=== PATIENT | female | born 1960 | race Caucasian/White ===

== ENCOUNTER 2022-11-30 22:15 | Outpatient (REF) | payer OTHER, SELFPAY ==
[2022-11-30 22:59] LABS: Appearance Urine Slightly Cloudy (Clear); Bilirubin Urine Negative (Negative); Blood Urine Trace-intact (Negative); Color Urine Dark yellow (Yellow); Glucose Urine Negative (Negative); Ketones Urine Trace (Negative); Leukocyte Esterase Urine 3+ (Negative); Nitrite Urine Negative (Negative); Protein Urine Negative (Negative); Urobilinogen Urine 0.2 (0.2-1.0)
[2022-11-30 23:00] LABS: Albumin* 4.3 g/dL (3.3-5.0); Chloride* 102 mmol/L (96-114)
[2022-11-30 23:01] LABS: Basophils Absolute Auto 0.03 K/uL (0.00-0.30); Basophils Percent Auto 0.4 % (0.0-3.0); Eosinophils Percent Auto 2.6 % (0.0-7.0); Hemoglobin* 14.3 gm/dL (12.0-16.0); Immature Granulocytes Abs Auto 0.06 K/uL (0.00-0.30); Immature Granulocytes Pct Auto 0.8 %; Lymphocytes Absolute Auto 1.59 K/uL (0.90-2.90); Lymphocytes Percent Auto 20.6 % (20-44); Mean Corpuscular HGB Conc 33 gm/dL (32-36); Mean Corpuscular Hemoglobin 32 pg (26-34); Mean Corpuscular Volume 97 fL (80-100); Monocytes Percent Auto 9.1 % (0.0-11.0); Neutrophils Absolute Auto 5.12 K/uL (1.7-7.0); Neutrophils Percent Auto 66.5 % (42.0-72.0); Platelet Count* 328 K/uL (140-440); Potassium* 4.7 mmol/L (3.6-5.1); RDW Coefficient of Variation % 13.4 % (11.5-15.5); Red Blood Count 4.42 m/uL (4.00-5.20); Sodium* 139 mmol/L (135-149)
[2022-11-30 23:03] LABS: Creatinine* 0.8 mg/dL (0.5-1.5); Estimated Glomerular Filt Rate 83 ml/min
[2022-11-30 23:04] LABS: Alanine Aminotransferase* 22 U/L (4-35); Alkaline Phosphatase* 87 U/L (40-150); Anion Gap 9 mEq/L (7-15); Aspartate Amino Transferase* 28 U/L (12-35); Bilirubin Total* 0.7 mg/dL (0.1-1.5); Blood Urea Nitrogen* 20 mg/dL (7-30); Calcium* 10.1 mg/dL (8.4-10.6); Carbon Dioxide* 28 mmol/L (20-32); Glucose* 76 mg/dL (60-115); Iron* 222 ug/dL (37-170); Slide Review Reflex No; Total Protein* 7.7 g/dL (6.0-8.3)
[2022-11-30 23:06] LABS: C Reactive Protein* 0.5 mg/dL (0.5-1.0)
[2022-11-30 23:13] LABS: Bacteria Urine Many; RBC Urine 0-2 (0-2); Squamous Epithelial Cell Urine Few (None-Few); WBC Urine 50-100 (0-5)
[2022-11-30 23:14] LABS: Calcium Oxalate Crystals Urine Few
[2022-11-30 23:58] LABS: Erythrocyte SedimentationRate* 9 mm/hr (2-20)
== END 2022-11-30 22:16 | disposition home or self-care (01) ==
LOC: NPINS 22:15
DX: Z79.899 Other long term (current) drug therapy (principal)
CPT/HCPCS: 80053; 81001; 83540; 85025; 85651; 86140; 87086; 87186

== ENCOUNTER 2023-08-05 13:50 | Outpatient (REF) | payer OTHER, SELFPAY ==
--- OUTSIDE RECORDS SUMMARY | 2023-08-05 13:58 | XMS_ITS | Referral Summary ---
Author Name Unknown Organization [facility] Address [address] [place] [id number] Care Team Providers Care Deposit Refund Clerk Name Role Phone Kodak Sheikh MD Primary Care Provider [phone] Allergies Active Allergy Reactions Criticality Noted Date Comments Amoxicillin Shortness Of Breath High 10/29/2022 Rash Penicillins Hives Low 04/23/2022 Rash, hives and itching, affected breathing 25 years with amoxicillin tolerates Keflex Medications Medication Sig Dispensed Refills Start Date End Date Status allopurinol (ZYLOPRIM) 300 MG tablet Take 300 mg by mouth daily Active DULoxetine (CYMBALTA) 60 MG capsule Take 60 mg by mouth 2 times daily Active fluticasone-salmete rol (ADVAIR) 100-50 MCG/ACT inhaler Inhale 1 puff into the lungs every 12 hours Active adalimumab (HUMIRA) 40 MG/0.8ML prefilled syringe kit Inject 40 mg Subcutaneous every 14 days Active levothyroxine (SYNTHROID/LEVOTHRO ID) 200 MCG tablet Take 200 mcg by mouth daily Active methotrexate 2.5 MG tablet Take 15 mg by mouth once a week 6 tablets on Sundays Active spironolactone (ALDACTONE) 25 MG tablet Take 25 mg by mouth daily Active lisdexamfetamine (VYVANSE) 40 MG capsule Take 40 mg by mouth every morning Active celecoxib (CELEBREX) 200 MG capsule Take 200 mg by mouth 2 times daily Active montelukast (SINGULAIR) 10 MG tablet Take 10 mg by mouth At Bedtime Active predniSONE (DELTASONE) 5 MG tablet Take 5 mg by mouth daily Active Vitamin D3 (CHOLECALCIFEROL) 25 mcg (1000 units) tablet Take 1 tablet by mouth daily Active vitamin B complex with vitamin C (VITAMIN B COMPLEX) tablet Take 1 tablet by mouth daily Active folic acid (FOLVITE) 1 MG tablet Take 1 mg by mouth daily Active acetaminophen (TYLENOL) 325 MG tabletIndications:S /P revision of total knee, right Take 2 tablets (650 mg) by mouth every 4 hours as needed for other (mild pain) 100 tablet 05/04/2022 Active polyethylene glycol (MIRALAX) 17 g packetIndications:S /P revision of total knee, right Take 17 g by mouth daily 7 packet 05/04/2022 Active HYDROcodone-acetami nophen (NORCO) 10-325 MG per tablet Take 1 tablet by mouth 2 times daily Active ibuprofen (ADVIL/MOTRIN) 800 MG tabletIndications:S /P gynecological surgery, follow-up exam Take 1 tablet (800 mg) by mouth every 6 hours as needed for other (mild and/or inflammatory pain) 30 tablet 10/29/2022 Active oxyCODONE (ROXICODONE) 5 MG tabletIndications:S /P gynecological surgery, follow-up exam Take 1-2 tablets (5-10 mg) by mouth every 4 hours as needed for moderate to severe pain 6 tablet 10/29/2022 Active ondansetron (ZOFRAN ODT) 4 MG ODT tabIndications:S/P gynecological surgery, follow-up exam Take 1 tablet (4 mg) by mouth every 8 hours as needed for nausea 4 tablet 10/29/2022 Active senna-docusate (SENOKOT-S/PERICOLA CE) 8.6-50 MG tabletIndications:S /P gynecological surgery, follow-up exam Take 1-2 tablets by mouth 2 times daily 30 tablet 10/29/2022 Active Active Problems Problem Noted Date Diagnosed Date S/P revision of total knee, 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 Social History Tobacco Use Types Packs/Day Years Used Date Smoking Tobacco: Former Cigarettes Smokeless Tobacco: Never Tobacco Cessation:Counseling Given: Not Answered Alcohol Use Standard Drinks/Week Comments Not Currently 0 (1 standard drink = 0.6 oz pur e alcohol) Adolescent Education Answer Date Record ed Getting School Help Needed Not on file 12/12 Sex and Gender Information Value Date Recorded Sex Assigned at Not on file Gender Identity Not on file Sexual Orientation Not on file Last Filed Vital Signs Vital Sign Reading Time Taken Comments Blood Pressure 130/59 10/29/2022 6:30 PM CDT Pulse 65 10/29/2022 6:30 PM CDT Temperature 36.7 ??C (98 ??F) 10/29/2022 4:30 PM CDT Respiratory Rate 23 10/29/2022 4:30 PM CDT Oxygen Saturation 94% 10/29/2022 6:30 PM CDT Inhaled Oxygen Concentration - - Weight 135.4 kg (298 lb 8 oz) 10/29/2022 11:57 A M CDT Height 170.2 cm (5' 7) 10/29/2022 12:34 PM CDT Body Mass Index 46.75 10/29/2022 11:57 AM CDT Plan of Treatment Not on file Medical Devices Implanted Type Area Air Traffic Control Specialist Device Identifier Shelf Expiration Date Model / Serial / Lot Bone Cement Simplex W/Tobramycin 6197-9-001 - [id number] Implanted:Qty : 2 on 05/04/2022 by Jewel Rivera MD at [facility] Cement, Bone Right: Knee [employer] 10/20/2023 6197-9-0 01 / / [id number] Bone Cement Simplex W/Tobramycin 6197-9-001 - [id number] Implanted:Qty : 1 on 05/04/2022 by Jewel Rivera MD at [facility] Cement, Bone Right: Knee [employer] 08/20/2023 6197-9-0 01 / / [id number] [place] Nabsb Saffron Fx Strl Lf Reuse - Sna Implanted:Qty : 1 on 10/29/2022 by Bert Nava MD at [facility] Metallic Hardware/An chor N/A: Vagina COLOPLAST [id number] 05/07/2025 [id number] / NA / [id number] [place] Nabsb Saffron Strl Lf Disp - Sna Implanted:Qty : 5 on 10/29/2022 by Bert Nava MD at [facility] Metallic Hardware/An chor N/A: Vagina COLOPLAST 10/29/2024 [id number] / NA / [id number] Imp Comp Strk Triathln Post Oct 10mm Sz 5 5544-A-500 - [id number] Implanted:Qty : 1 on 05/04/2022 by Jewel Rivera MD at [facility] Total Joint Component/I nsert Right: Knee [employer] [id number] 12/07/2026 5544-A-5 00 / / [id number] Imp Stem Femoral Strk Ts Kimo [id number] 5560-S-112 - [id number] Implanted:Qty : 1 on 05/04/2022 by Jewel Rivera MD at [facility] Total Joint Component/I nsert Right: Knee [employer] [id number] 12/22/2026 5560-S-1 12 / / [id number] Imp Baseplate Tibial Strk Tri Sz 6 5521-B-600 - [id number] Implanted:Qty : 1 on 05/04/2022 by Jewel Rivera MD at [facility] Total Joint Component/I nsert Right: Knee [employer] [id number] 12/28/2026 5521-B-6 00 / / [id number] Augment Tibial Sz B Tritanium Right Medial Left Lateral Co - [id number] Implanted:Qty : 1 on 05/04/2022 by Jewel Rivera MD at [facility] Total Joint Component/I nsert Right: Knee [employer] [id number] 11/30/2026 5549-A-2 22 / / [id number] Styker Triatholon X3 Totalstabiliz er+ Tibial Insert #6, 22 Mm Implanted:Qty : 1 on 05/04/2022 by Jewel Rivera MD at [facility] Total Joint Component/I nsert Right: Knee [employer] [id number] 10/14/2026 5537-G-6 22-E / / [id number] Imp Stem Femoral Strk Ts Kimo 31m68vm 5560-S-115 - [id number] Implanted:Qty : 1 on 05/04/2022 by Jewel Rivera MD at [facility] Total Joint Component/I nsert Right: Knee [employer] [id number] 12/17/2026 5560-S-1 15 / / [id number] Imp Comp Fem Strk Triathln Ts Sz 5 Rt 5512-F-502 - [id number] Implanted:Qty : 1 on 05/04/2022 by Jewel Rivera MD at [facility] Total Joint Component/I nsert Right: Knee [employer] [id number] 01/21/2027 5512-F-5 02 / / [id number] Imp Comp Strk Triathln Post Aug 5mm Sz 5 5543-A-500 - [id number] Implanted:Qty : 1 on 05/04/2022 by Jewel Rivera MD at [facility] Total Joint Component/I nsert Right: Knee [employer] [id number] 11/19/2026 5543-A-5 00 / / [id number] Imp Comp Fem Strk Triathln Dist Aug 5mm Rt 5 5540-A-502 - [id number] Implanted:Qty : 1 on 05/04/2022 by Jewel Rivera MD at [facility] Total Joint Component/I nsert Right: Knee [employer] [id number] 07/17/2026 5540-A-5 02 / / [id number] Explanted Type Area Air Traffic Control Specialist Device Identifier Shelf Expiration Date Model / Serial / Lot Tiffanie Femoral Knee Component Explanted:Qty: 1 on 05/04/2022 by Jewel Rivera MD at [facility] Right: Knee Tiffanie Tibial Knee Component Explanted:Qty: 1 on 05/04/2022 by Jewel Rivera MD at [facility] Right: Knee Tiffanie Poly Insert Knee Component Explanted:Qty: 1 on 05/04/2022 by Jewel Rivera MD at [facility] Right: Knee Procedures Procedure Name Priority Date/Time Associated Diagnosis Comments GLUCOSE (EXTERNAL RESULT) Routine 10/20/2022 2:20 PM CDT MA SCREENING BILATERAL Routine 03/29/2020 3:55 PM WRAPPING CHECKER from Last 3 Months or Most Recently Relevant to Health Maintenance Results * Glucose (External Result) (10/20/2022 2:20 PM CDT) Glucose (External) 82 60 - 115 mg/dL [facility] Blood 10/20/2022 2:20 PM CDT Narrative [facility] - 10/20/2022 2:20 PM CDT [facility] Lab Result Provider Outside LAB - HIM EXTERNAL R ESULT [facility] [address] [place] [id number], [facility] [phone] from Last 3 Months or Most Recently Relevant to Health Maintenance Advance Directives For more information, please contact: [phone] * Full Code (Latest Code Status on File) Date Activated Date Inactivated Comments 05/04/2022 3:51 PM 05/07/2022 7:18 PM All basic an d advanced life-sustaining interventions are performed as appropriate Question Answer Comments Code status determined by: Unable to dis cuss and no AD/POLST on file; continue PREVIOUSLY ORDERED code status Care Teams Deposit Refund Clerk Relationship Specialty Start Date End Date Kodak Sheikh MD PCP - General Family Medicine 04/28/22
--- OUTSIDE RECORDS SUMMARY | 2023-08-05 13:58 | XMS_ITS | Clinical Summary ---
Author Name Unknown Organization [facility] Address [place], [place] [address] Care Team Providers Care Equity Sales Assistant Name Role Phone Staff, Other Clinical Primary Care Provider Unav ailable Allergies Active Allergy Reactions Criticality Noted Date Comments Penicillins Hives,Rash Medium 11/08/2019 Medications Medication Sig Dispensed Refills Start Date End Date Status adalimumab 40 mg/0.4 mL pnkt Inject 40 mg subcutaneous every 2 weeks. 05/06/2021 Active albuterol HFA (PRO-AIR; VENTOLIN; PROVENTIL) 90 mcg/actuation inhaler albuterol sulfate HFA 90 mcg/actuation aerosol inhaler INL 2 PFS PO Q 4 H PRN Active allopurinoL (ZYLOPRIM) 300 mg tablet allopurinol 300 mg tablet Active celecoxib (CELEBREX) 200 mg capsule celecoxib 200 mg capsule Active DULoxetine (CYMBALTA) 60 mg Delayed-release capsule duloxetine 60 mg capsule,delayed release TK ONE C PO BID Active levothyroxine (SYNTHROID) 200 mcg tablet levothyroxine 200 mcg tablet Active methotrexate (RHEUMATREX) 2.5 mg tablet TAKE 6 TABLETS BY MOUTH 1 TIME A WEEK 12/31/2021 Active predniSONE (DELTASONE) 5 mg tablet Take 5 mg by mouth once daily. 12/31/2021 Active Social History Tobacco Use Types Packs/Day Years Used Date Smoking Tobacco: Never Smokeless Tobacco: Never Tobacco Cessation:Counseling Given: No Sex and Gender Information Value Date Recorded Sex Assigned at Not on file Gender Identity Not on file Sexual Orientation Not on file Obstetrics History Last Filed Vital Signs Vital Sign Reading Time Taken Comments Blood Pressure 138/75 01/16/2022 10:26 AM CDT Pulse 78 01/16/2022 10:26 AM CDT Temperature 36.1 ??C (96.9 ??F) 01/16/2022 10:26 AM C DT Respiratory Rate 16 01/16/2022 10:26 AM CDT Oxygen Saturation 99% 01/16/2022 10:26 AM CDT Inhaled Oxygen Concentration - - Weight 136.1 kg (300 lb) 01/16/2022 10:26 AM CDT Height 170.2 cm (5' 7) 01/16/2022 10:26 AM CDT Body Mass Index 46.99 01/16/2022 10:26 AM CDT Plan of Treatment Not on file Care Teams Equity Sales Assistant Relationship Specialty Start Date End Date Staff, Other Clinical . PCP - General 01/16/22
--- OUTSIDE RECORDS SUMMARY | 2023-08-05 13:58 | XMS_ITS | Clinical Summary ---
Author Name Unknown Organization [facility] Address [address] [place] [address] Care Team Providers Care Veterinary Medical Officer Name Role Phone Kodak Sheikh MD Primary Care Provider [phone] Allergies Active Allergy Reactions Criticality Noted Date [...] 10/29/2022 11:57 AM CDT Plan of Treatment Health Maintenance Due Date Last Done Comments ADVANCE CARE PLANNING 1958 ANNUAL REVIEW OF HM ORDERS 1958 CT COLONOGRAPHY 1958 FIT 1958 FLEX SIG 1958 TSH W/FREE T4 REFLEX 1958 sDNA (Cologuard) 1958 HIV SCREENING 1973 HEPATITIS C SCREENING 1976 MEDICARE ANNUAL WELLNESS VISIT 1976 PAP 12/06/1979 LIPID 1998 LUNG CANCER SCREENING 2008 ZOSTER IMMUNIZATION (1 of 2) 11/24/2011 09/29/2011 Pneumococcal Vaccine: Pediatrics (0 to 5 Years) and At-Risk Patients (6 to 64 Years) (3 of 3 - PPSV23 or PCV20) 01/31/2016 01/30/2011, 01/30/2011, 01/30/2011, Additional history exists RSV VACCINE ( & 60+) (1 - 1-dose 60+ series) 2018 COLONOSCOPY 2019 12/04/2009 COLORECTAL CANCER SCREENING 2019 COVID-19 Vaccine (3 - Moderna risk series) 09/24/2020 08/27/2020, 07/19/2020 MAMMO SCREENING 03/29/2022 03/29/2020 PHQ-2 (once per calendar year) 2023 INFLUENZA VACCINE (Season Ended) 2023 2020, 12/07/2019, 12/03/2018, Additional history exists GLUCOSE 10/20/2025 10/20/2022, 04/22, 05/05/2022, Additional history exists DTAP/TDAP/TD IMMUNIZATION (3 - Td or Tdap) 2030 2020, 06/28/2009 HPV IMMUNIZATION Aged Out No longer e ligible based on patient's age to complete this topic IPV IMMUNIZATION Aged Out No longer e ligible based on patient's age to complete this topic MENINGITIS IMMUNIZATION Aged Out No l onger eligible based on patient's age to complete this topic RSV MONOCLONAL ANTIBODY Aged Out No l onger eligible based on patient's age to complete this topic Medical Devices Implanted Type Area Chucking Machine Set Up Operator Tool Device Identifier Shelf Expiration Date Model / Serial / Lot Bone Cement Simplex W/Tobramycin 6197-9-001 - [id number] Implanted:Qty : 2 on 05/04/2022 by Jewel Rivera MD at [facility] Cement, Bone Right: Knee [employer] 10/20/2023 6197-9-0 / / [id number] Bone Cement Simplex W/Tobramycin 6197-9-001 - [id number] Implanted:Qty : 1 on 05/04/2022 by Jewel Rivera MD at [facility] Cement, Bone Right: Knee [employer] 08/20/2023 6197-9-0 01 / / [id number] [place] Nabsb Saffron Fx Strl Lf Reuse - Sna Implanted:Qty : 1 on 10/29/2022 by Bert Nava MD at [facility] Metallic Hardware/An chor N/A: Vagina COLOPLAST [id number] 05/07/2025 [id number] / NA / [id number] [place] Nabsb Saffron Strl Lf Disp - Sna Implanted:Qty : 5 on 10/29/2022 by Bert Nava MD at [facility] Metallic Hardware/An chor N/A: Vagina COLOPLAST 10/29/2024 [id number] / NA / [id number] Imp Comp Strk Triathln Post Aug 10mm Sz 5 5544-A-500 - [id number] Implanted:Qty : 1 on 05/04/2022 by Jewel Rivera MD at [facility] Total Joint Component/I nsert Right: Knee [employer] [id number] 12/07/2026 5544-A-5 00 / / [id number] Imp Stem Femoral Strk Ts Kimo [id number] 5560-S-112 - [id number] Implanted:Qty : 1 on 05/04/2022 by Jewel Rivera MD at [facility] Total Joint Component/I nsert Right: Knee [employer] [id number] 12/22/2026 5560-S-1 12 / / [id number] Imp Baseplate Tibial Strk Tri Sz 6 5521-B-600 - [id number] Implanted:Qty : 1 on 05/04/2022 by Jewel Rivera MD at [facility] Total Joint Component/I nsert Right: Knee [employer] [id number] 12/28/2026 5521-B-6 00 / / [id number] Augment Tibial Sz B Tritanium Right Medial Left Lateral Co - [id number] Implanted:Qty : 1 on 05/04/2022 by Jewel Rivera MD at [facility] Total Joint Component/I nsert Right: Knee [employer] [id number] 11/30/2026 5549-A-2 22 / / [id number] Styker Triatholon X3 Totalstabiliz er+ Tibial Insert #6, 22 Mm Implanted:Qty : 1 on 05/04/2022 by Jewel Rivera MD at [facility] Total Joint Component/I nsert Right: Knee [employer] [id number] 10/14/2026 5537-G-6 22-E / / [id number] Imp Stem Femoral Strk Ts Kimo [id number] 5560-S-115 - [id number] Implanted:Qty : 1 on 05/04/2022 by Jewel Rivera MD at [facility] Total Joint Component/I nsert Right: Knee [employer] [id number] 12/17/2026 5560-S-1 15 / / [id number] Imp Comp Fem Strk Triathln Ts Sz 5 Rt 5512-F-502 - [id number] Implanted:Qty : 1 on 05/04/2022 by Jewel Rivera MD at [facility] Total Joint Component/I nsert Right: Knee [employer] [id number] 01/21/2027 5512-F-5 02 / / [id number] Imp Comp Strk Triathln Post Aug 5mm Sz 5 5543-A-500 - [id number] Implanted:Qty : 1 on 05/04/2022 by Jewel Rivera MD at [facility] Total Joint Component/I nsert Right: Knee [employer] [id number] 11/19/2026 5543-A-5 00 / / [id number] Imp Comp Fem Strk Triathln Dist Aug 5mm Rt 5 5540-A-502 - [id number] Implanted:Qty : 1 on 05/04/2022 by Jewel Rivera MD at [facility] Total Joint Component/I nsert Right: Knee [employer] [id number] 07/17/2026 5540-A-5 02 / / [id number] Explanted Type Area Chucking Machine Set Up Operator Tool Device Identifier Shelf Expiration Date Model / Serial / Lot Tiffanie Femoral Knee Component Explanted:Qty: 1 on 05/04/2022 by Jewel Rivera MD at [facility] Right: Knee Tiffanie Tibial Knee Component Explanted:Qty: 1 on 05/04/2022 by Jewel Rivera MD at [facility] Right: Knee Tiffanie Poly Insert Knee Component Explanted:Qty: 1 on 05/04/2022 by Jewel Rivera MD at [facility] Right: Knee Procedures Procedure Name Priority Date/Time Associated Diagnosis Comments GLUCOSE (EXTERNAL RESULT) Routine 10/20/2022 2:20 PM CDT MA SCREENING BILATERAL Routine 03/29/2020 3:55 PM BOAT CAMP OPERATOR from Last 3 Months or Most Recently Relevant to Health Maintenance Results * Glucose (External Result) (10/20/2022 2:20 PM CDT) Glucose (External) 82 60 - 115 mg/dL [facility] Blood 10/20/2022 2:20 PM CDT Narrative [facility] - 10/20/2022 2:20 PM CDT [facility] Lab Result Provider Outside LAB - HIM EXTERNAL R ESULT [facility] [address] [place] [id number], [facility] [phone] from Last 3 Months or Most Recently Relevant to Health Maintenance Advance Directives For more information, please contact: [phone] * Full Code (Latest Code Status on File) Date Activated Date Inactivated Comments 05/04/2022 3:51 PM 05/07/2022 7:18 PM All basic an d advanced life-sustaining interventions are performed as appropriate Question Answer Comments Code status determined by: Unable to dis cuss and no AD/POLST on file; continue PREVIOUSLY ORDERED code status Care Teams Veterinary Medical Officer Relationship Specialty Start Date End Date Kodak Sheikh MD PCP - General Family Medicine 04/28/22
[2023-08-05 14:42] LABS: Basophils Absolute Auto 0.05 K/uL (0.00-0.30); Basophils Percent Auto 0.9 % (0.0-3.0); Eosinophils Absolute Auto 0.17 K/uL (0.00-0.50); Eosinophils Percent Auto 3.1 % (0.0-7.0); Hematocrit 40.4 % (33.0-51.0); Hemoglobin* 13.4 gm/dL (12.0-16.0); Immature Granulocytes Abs Auto 0.04 K/uL (0.00-0.30); Immature Granulocytes Pct Auto 0.7 %; Lymphocytes Absolute Auto 1.75 K/uL (0.90-2.90); Mean Corpuscular HGB Conc 33 gm/dL (32-36); Mean Corpuscular Hemoglobin 34 pg (26-34); Mean Corpuscular Volume 102 fL (80-100); Monocytes Percent Auto 9.9 % (0.0-11.0); Neutrophils Absolute Auto 2.92 K/uL (1.7-7.0); Neutrophils Percent Auto 53.4 % (42.0-72.0); Platelet Count* 292 K/uL (140-440); RDW Coefficient of Variation % 14.5 % (11.5-15.5); Red Blood Count 3.96 m/uL (4.00-5.20); White Blood Count* 5.47 K/uL (4.50-11.00)
[2023-08-05 14:44] LABS: Slide Review Reflex No
[2023-08-05 14:51] LABS: Albumin* 4.1 g/dL (3.3-5.0); Chloride* 106 mmol/L (96-114); Sodium* 141 mmol/L (135-149)
[2023-08-05 14:52] LABS: Potassium* 4.2 mmol/L (3.6-5.1)
[2023-08-05 14:53] LABS: Creatinine* 0.7 mg/dL (0.5-1.5); Estimated Glomerular Filt Rate 97 ml/min
[2023-08-05 14:54] LABS: Alanine Aminotransferase* 26 U/L (4-35); Alkaline Phosphatase* 76 U/L (40-150); Anion Gap 6 mEq/L (7-15); Aspartate Amino Transferase* 29 U/L (12-35); Bilirubin Total* 0.6 mg/dL (0.1-1.5); Blood Urea Nitrogen* 22 mg/dL (7-30); Carbon Dioxide* 29 mmol/L (20-32); Total Protein* 7.2 g/dL (6.0-8.3)
[2023-08-05 14:55] LABS: Calcium* 9.1 mg/dL (8.4-10.6); Glucose* 96 mg/dL (60-115)
[2023-08-05 15:04] LABS: C Reactive Protein* < 0.5 mg/dL (0.5-1.0)
[2023-08-05 15:16] LABS: Erythrocyte SedimentationRate* 6 mm/hr (2-20)
== END 2023-08-05 13:51 | disposition home or self-care (01) ==
LOC: NPINS 13:50
DX: L40.50 Arthropathic psoriasis, unspecified (principal); Z79.899 Other long term (current) drug therapy
CPT/HCPCS: 80053; 85025; 85651; 86140

== ENCOUNTER 2023-12-06 22:35 | Outpatient (REF) | payer OTHER, SELFPAY ==
--- OUTSIDE RECORDS SUMMARY | 2023-12-06 22:39 | XMS_ITS | Clinical Summary ---
Author Organization [facility] Address [place], [place] [address] Care Team Providers Care Net Sql Developer Name Role Phone Staff, Other Clinical Primary [...] of Treatment Not on file Care Teams Net Sql Developer Relationship Specialty Start Date End Date Staff, Other Clinical . PCP - General 01/16/22
--- OUTSIDE RECORDS SUMMARY | 2023-12-06 22:39 | XMS_ITS | Clinical Summary ---
Author Organization [facility] Address [address] [place] [address] Care Team Providers Care Group Fitness Manager Name Role Phone Kodak Sheikh MD Primary Care Provider [phone] Allergies Active Allergy Reactions Criticality Noted Date [...] OF HM ORDERS 1958 CT COLONOGRAPHY 1958 DEXA 1958 FIT 1958 FLEX SIG 1958 TSH W/FREE T4 REFLEX 1958 sDNA (Cologuard) 1958 HIV SCREENING 1973 HEPATITIS C SCREENING 1976 MEDICARE ANNUAL WELLNESS VISIT 1976 LIPID 1998 LUNG CANCER SCREENING 2008 ZOSTER IMMUNIZATION (1 of 2) 11/24/2011 09/29/2011 Pneumococcal Vaccine: 65+ Years (3 of 3 - PPSV23 or PCV20) 01/31/2016 01/30/2011, 01/30/2011, 01/30/2011, Additional history exists RSV VACCINE (1 - Risk 60-74 years 1-dose series) 2018 COLONOSCOPY 2019 12/04/2009 COLORECTAL CANCER SCREENING 2019 COVID-19 Vaccine (3 - Moderna risk series) 09/24/2020 08/27/2020, 07/19/2020 MAMMO SCREENING 03/29/2022 03/29/2020 PHQ-2 (once per calendar year) 2023 INFLUENZA VACCINE (#1) 2023 , 12/07/2019, 12/03/2018, Additional history exists FALL RISK ASSESSMENT 12/06/2023 GLUCOSE 10/20/2025 10/20/2022, 0207/2022, 05/05/2022, Additional history exists DTAP/TDAP/TD IMMUNIZATION (3 [...] this topic Medical Devices Implanted Type Area Manager Occupational Device Identifier Shelf Expiration Date Model / Serial / Lot Bone Cement Simplex W/Tobramycin 6197-9-001 - [id number] Implanted:Qty : 2 on 05/04/2022 by Jewel Rivera MD at [facility] Cement, Bone Right: Knee [employer] 10/20/2023 6197-9-0 01 / / [id number] Bone Cement Simplex W/Tobramycin 6197-9-001 - [id number] Implanted:Qty : 1 on 05/04/2022 by Jewel Rivera MD at [facility] Cement, Bone Right: Knee [employer] 08/20/2023 6197-9-0 01 / / [id number] Pandora Nabsb Saffron Fx Strl Lf Reuse - Sna Implanted:Qty : 1 on 10/29/2022 by Bert Nava MD at [facility] Metallic Hardware/An chor N/A: Vagina COLOPLAST [id number] 05/07/2025 143724 / NA / [id number] Pandora Nabsb Saffron Strl Lf Disp - Sna Implanted:Qty : 5 on 10/29/2022 by Bert Nava MD at [facility] Metallic Hardware/An chor N/A: Vagina COLOPLAST 10/29/2024 [id number] / NA / [id number] Imp Comp Strk Triathln Post Aug 10mm Sz 5 5544-A-500 - [id number] Implanted:Qty : 1 on 05/04/2022 by Jewel Rivera MD at [facility] Total Joint Component/I nsert Right: Knee [employer] [id number] 12/07/2026 5544-A-5 00 / / [id number] Imp Stem Femoral Strk Ts Kimo 08f69nh 5560-S-112 - [id number] Implanted:Qty : 1 on 05/04/2022 by Jewel Rivera MD at [facility] Total Joint Component/I nsert Right: Knee [employer] [id number] 12/22/2026 5560-S-1 12 / / [id number] Imp Baseplate Tibial Strk Tri Sz 6 5521-B-600 - [id number] Implanted:Qty : 1 on 05/04/2022 by Jewel Rivera MD at [facility] Total Joint Component/I nsert Right: Knee [employer]ye[employer] [id number] 12/28/2026 5521-B-6 00 / / [id number] Augment Tibial Sz B Tritanium Right Medial Left Lateral Co - [id number] Implanted:Qty : 1 on 05/04/2022 by Jewel Rivera MD at [facility] Total Joint Component/I nsert Right: Knee [employer] [id number] 11/30/2026 5549-A-2 22 / / [id number] Styker Triatholon X3 Totalstabiliz er+ Tibial Insert #6, 22 Mm Implanted:Qty : 1 on 05/04/2022 by Jewel Rivera MD at [facility] Total Joint Component/I nsert Right: Knee [employer] [id number] 10/14/2026 5537-G-6 22-E / / [id number] Imp Stem Femoral Strk Ts Kimo 18x60ri 5560-S-115 - [id number] Implanted:Qty : 1 on 05/04/2022 by Jewel Rivera MD at [facility] Total Joint Component/I nsert Right: Knee [employer] [id number] 12/17/2026 5560-S-1 15 / / [id number] Imp Comp Fem Strk Triathln Ts Sz 5 Rt 5512-F-502 - [id number] Implanted:Qty : 1 on 05/04/2022 by Jewel Rivera MD at [facility] Total Joint Component/I nsert Right: Knee [employer] [id number] 01/21/2027 5512-F-5 02 / / [id number] Imp Comp Strk Triathln Post Aug 5mm Sz 5 5543-A-500 - [id number] Implanted:Qty : 1 on 05/04/2022 by Jewel Rivera MD at [facility] Total Joint Component/I nsert Right: Knee [employer] [id number] 11/19/2026 5543-A-5 00 / / [id number] Imp Comp Fem Strk Triathln Dist Aug 5mm Rt 5 5540-A-502 - [id number] Implanted:Qty : 1 on 05/04/2022 by Jewel Rivera MD at [facility] Total Joint Component/I nsert Right: Knee [employer] [id number] 07/17/2026 5540-A-5 02 / / [id number] Explanted Type Area Manager Occupational Device Identifier Shelf Expiration Date Model / Serial / Lot Tiffanie Femoral Knee Component Explanted:Qty: 1 on 05/04/2022 by Jewel Rivera MD at [facility] Right: Knee Tiffanie Tibial Knee Component Explanted:Qty: 1 on 05/04/2022 by Jewel Rivera MD at [facility] Right: Knee Tiffanie Poly Insert Knee Component Explanted:Qty: 1 on 05/04/2022 by Jewel Rivera MD at [facility] Right: Knee Procedures Procedure Name Priority Date/Time Associated Diagnosis Comments GLUCOSE (EXTERNAL RESULT) Routine 10/20/2022 2:20 PM CDT from Last 3 Months or Most Recently Relevant to Health Maintenance Results * Glucose (External Result) (10/20/2022 2:20 PM CDT) [facility] Glucose (External) 82 60 - 115 mg/dL [facility] Blood 10/20/2022 2:20 PM CDT Narrative [facility] - 10/20/2022 2:20 PM T [facility] Lab Result Provider Outside LAB - HIM EXTERNAL R ESULT [facility] [address] [place] [id number] [phone] from Last 3 Months or Most Recently Relevant to Health Maintenance Advance Directives For more information, please contact: [phone] * Full Code (Latest Code Status on File) Date Activated Date Inactivated Comments 05/04/2022 3:51 PM 05/07/2022 7:18 PM All basic an d advanced life-sustaining interventions are performed as appropriate Question Answer Comments Code status determined by: Unable to dis cuss and no AD/POLST on file; continue PREVIOUSLY ORDERED code status Care Teams Group Fitness Manager Relationship Specialty Start Date End Date Kodak Sheikh MD PCP - General Family Medicine 04/28/22
--- OUTSIDE RECORDS SUMMARY | 2023-12-06 22:39 | XMS_ITS | Referral Summary ---
Author Organization [facility] Address [address] [place] [address] Care Team Providers Care Flag Football Coach Name Role Phone Kodak Sheikh MD Primary Care Provider [phone] Allergies Active Allergy Reactions Criticality Noted Date [...] on file Medical Devices Implanted Type Area Newspaper Managing Editor Device Identifier Shelf Expiration Date Model / Serial / Lot Bone Cement Simplex W/Tobramycin 6197-9-001 - [id number] Implanted:Qty : 2 on 05/04/2022 by Jewel Rivera MD at [facility] Cement, Bone Right: Knee [employer] 10/20/2023 6197-9-0 01 / / [id number] Bone Cement Simplex W/Tobramycin 6197-9-001 - [id number] Implanted:Qty : 1 on 05/04/2022 by Jewel Rivera MD at [facility] Cement, Bone Right: Knee [employer] 08/20/2023 6197-9-0 01 / / [id number] Belden Nabsb Saffron Fx Strl Lf Reuse - Sna Implanted:Qty : 1 on 10/29/2022 by Bert Nava MD at [facility] Metallic Hardware/An chor N/A: Vagina COLOPLAST [id number] 05/07/2025 255271 / NA / [id number] Belden Nabsb Saffron Strl Lf Disp - Sna Implanted:Qty : 5 on 10/29/2022 by Bert Nava MD at [facility] Metallic Hardware/An chor N/A: Vagina COLOPLAST 10/29/2024 [id number] / NA / [id number] Imp Comp Strk Triathln Post Oct 10mm Sz 5 5544-A-500 - [id number] Implanted:Qty : 1 on 05/04/2022 by Jewel Rviera MD at [facility] Total Joint Component/I nsert Right: Knee [employer] [id number] 12/07/2026 5544-A-5 00 / / [id number] Imp Stem Femoral Strk Ts Kimo 13x06dv 5560-S-112 - [id number] Implanted:Qty : 1 on 05/04/2022 by Jewel Rivera MD at [facility] Total Joint Component/I nsert Right: Knee [employer] [id number] 12/22/2026 5560-S-1 12 / / [id number] Imp Baseplate Tibial Strk Tri Sz 6 5521-B-600 - [id number] Implanted:Qty : 1 on 05/04/2022 by Jewel Rivera MD at [facility] Total Joint Component/I nsert Right: Knee [employer] [id number] 12/28/2026 5521-B-6 00 / / [id number] Augment Tibial Sz B Tritanium Right Medial Left Lateral Co - [id number] Implanted:Qty : 1 on 05/04/2022 by Jewel Rivera MD at [facility] Total Joint Component/I nsert Right: Knee [employer] [id number] 11/30/2026 5549-A-2 22 / / [id number] Styker Triatholon X3 Totalstabiliz er+ Tibial Insert #6, 22 Mm Implanted:Qty : 1 on 05/04/2022 by Jewel Rivera MD at [facility] Total Joint Component/I nsert Right: Knee [employer] [id number] 10/14/2026 5537-G-6 22-E / / [id number] Imp Stem Femoral Strk Ts Kimo 14w10ep 5560-S-115 - [id number] Implanted:Qty : 1 on 05/04/2022 by Jewel Rivera MD at [facility] Total Joint Component/I nsert Right: Knee [employer] [id number] 12/17/2026 5560-S-1 15 / / [id number] Imp Comp Fem Strk Triathln Ts Sz 5 Rt 5512-F-502 - [id number] Implanted:Qty : 1 on 05/04/2022 by Jewel Rivera MD at [facility] Total Joint Component/I nsert Right: Knee [employer] [id number] 01/21/2027 5512-F-5 02 / / [id number] Imp Comp Strk Triathln Post Aug 5mm Sz 5 5543-A-500 - [id number] Implanted:Qty : 1 on 05/04/2022 by Jewel Rivera MD at [facility] Total Joint Component/I nsert Right: Knee [employer] [id number] 11/19/2026 5543-A-5 00 / / [id number] Imp Comp Fem Strk Triathln Dist Aug 5mm Rt 5 5540-A-502 - [id number] Implanted:Qty : 1 on 05/04/2022 by Jewel Rivera MD at [facility] Total Joint Component/I nsert Right: Knee [employer] [id number] 07/17/2026 5540-A-5 02 / / [id number] Explanted Type Area Newspaper Managing Editor Device Identifier Shelf Expiration Date Model / Serial / Lot Tiffanie Femoral Knee Component Explanted:Qty: 1 on 05/04/2022 by Jewel Rivera MD at [facility] Right: Knee Tiffanie Tibial Knee Component Explanted:Qty: 1 on 05/04/2022 by Jewel Rivera MD at [facility] Right: Knee Tiffanie Poly Insert Knee Component Explanted:Qty: 1 on 05/04/2022 by Jewel Rivera MD at [facility] Right: Knee Procedures Procedure Name Priority Date/Time Associated Diagnosis Comments GLUCOSE (EXTERNAL RESULT) Routine 10/20/2022 2:20 PM CDT from Last 3 Months or Most Recently Relevant to Health Maintenance Results * Glucose (External Result) (10/20/2022 2:20 PM CDT) Glucose (External) 82 60 - 115 mg/dL [facility] Blood 10/20/2022 2:20 PM CDT Narrative [facility] - 10/20/2022 2:20 PM CDT [facility] Lab Result Provider Outside LAB - HIM EXTERNAL R ESULT [facility] [address] [place] [id number], [facility] [phone] from Last 3 Months or Most Recently Relevant to Health Maintenance Advance Directives For more information, please contact: [phone] * Full Code (Latest Code Status on File) Date Activated Date Inactivated Comments 05/04/2022 3:51 PM 05/07/2022 7:18 PM All basic an d advanced life-sustaining interventions are performed as appropriate Question Answer Comments Code status determined by: Unable to dis cuss and no AD/POLST on file; continue PREVIOUSLY ORDERED code status Care Teams Flag Football Coach Relationship Specialty Start Date End Date Kodak Sheikh MD PCP - General Family Medicine 04/28/22
[2023-12-06 23:47] LABS: C Reactive Protein* < 0.5 mg/dL (0.5-1.0)
[2023-12-06 23:55] LABS: Erythrocyte SedimentationRate* 2 mm/hr (2-20)
== END 2023-12-06 22:36 | disposition home or self-care (01) ==
LOC: NPINS 22:35
DX: Z00.00 Encounter for general adult medical examination without abnormal findings (principal); D64.9 Anemia, unspecified; I10 Essential (primary) hypertension; E03.9 Hypothyroidism, unspecified; E11.9 Type 2 diabetes mellitus without complications; M35.3 Polymyalgia rheumatica; F50.81 Binge eating disorder; R53.83 Other fatigue
CPT/HCPCS: 80053; 84443; 85651; 86140